=== PATIENT | female | born 1960 | race Caucasian/White ===

== ENCOUNTER → 2017-02-01 | Outpatient (CLI) | payer OTHER ==
[2017-02-01 13:17] LABS: BASO % 0.9 %; BASO ABS # 0.05 K/uL (0-0.2); COMPLETE YES; EOS % 1.3 %; HEMATOCRIT 41.6 % (37-47); IG% 0.2 %; LYMPH % 31.2 %; LYMPH ABS # 1.67 K/uL (1.2-3.4); MEAN CELL VOLUME 85.1 fL (80-100); MEAN CORPUSCULAR HEMOGLOBIN 30.3 pg (25-34); MEAN CORPUSCULAR HGB CONC 35.6 g/dl (32-36); MONO % 13.4 %; PLATELET COUNT 184 K/uL (130-400); RED BLOOD COUNT 4.89 M/uL (4.2-5.4); WHITE BLOOD COUNT 5.36 K/uL (4.8-10.8)
[2017-02-01 13:56] LABS: ALT/SGPT 28 U/L (12-78); AST/SGOT 18 U/L (15-37); BLOOD UREA NITROGEN 12 mg/dl (7-18); CARBON DIOXIDE 28 mmol/L (21-32); CHLORIDE 106 mmol/L (98-107); CHOLESTEROL 178 mg/dl (0-200); CREATININE 0.62 mg/dl (0.60-1.20); GLUCOSE 83 mg/dl (70-99); SODIUM 142 mmol/L (136-145); TRIGLYCERIDES 130 mg/dl (0-150); VERY LOW DENSITY LIPOPROT CALC 26 mg/dl
[2017-02-01 14:06] LABS: ALB/GLOB RATIO 1.1 (0.9-2); ALKALINE PHOSPHATASE 80 U/L (45-117); CHOLESTEROL/HDL RATIO 3.2; HDL CHOLESTEROL 55 mg/dl; LDL CHOLESTEROL CALCULATED 97 mg/dl
== END | disposition home or self-care (01) ==
LOC: C.LAB1850 12:03
PROVIDERS: ATTEND Internal Medicine
DX: I10 Essential (primary) hypertension (principal); R51 Headache

== ENCOUNTER → 2018-01-07 | Outpatient (CLI) | payer OTHER ==
[2018-01-07 17:28] LABS: BASO % 0.4 %; BASO ABS # 0.02 K/uL (0-0.2); EOS % 0.9 %; EOS ABS # 0.05 K/uL (0-0.5); HEMATOCRIT 40.2 % (37-47); HEMOGLOBIN 14.3 g/dL (12.0-16.0); IG# 0.01 K/uL (0.00-0.02); LYMPH % 29.7 %; LYMPH ABS # 1.64 K/uL (1.2-3.4); MEAN CELL VOLUME 86.3 fL (80-100); MEAN CORPUSCULAR HEMOGLOBIN 30.7 pg (25-34); MEAN CORPUSCULAR HGB CONC 35.6 g/dl (32-36); MEAN PLATELET VOLUME 9.2 fL (7.4-10.4); MONO % 7.4 %; MONO ABS # 0.41 K/uL (0.11-0.59); NEUT % 61.4 %; NEUT ABS # 3.39 K/uL (1.4-6.5); PLATELET COUNT 172 K/uL (130-400); RED CELL DISTRIBUTION WIDTH CV 12.8 % (11.5-14.5); RED CELL DISTRIBUTION WIDTH SD 39.9 fL (36.4-46.3); WHITE BLOOD COUNT 5.52 K/uL (4.8-10.8)
[2018-01-07 17:52] LABS: ALBUMIN 3.7 gm/dl (3.4-5.0); ALT/SGPT 38 U/L (12-78); AST/SGOT 21 U/L (15-37); BLOOD UREA NITROGEN 14 mg/dl (7-18); CALCIUM 8.5 mg/dl (8.5-10.1); CARBON DIOXIDE 26 mmol/L (21-32); CREATININE 0.71 mg/dl (0.60-1.20); GLUCOSE 120 mg/dl (70-99); POTASSIUM 3.6 mmol/L (3.5-5.1); SODIUM 139 mmol/L (136-145)
[2018-01-07 18:04] LABS: ALKALINE PHOSPHATASE 84 U/L (45-117); CHOLESTEROL 176 mg/dl (0-200); LDL CHOLESTEROL CALCULATED 78 mg/dl; TOTAL PROTEIN 7.4 gm/dl (6.4-8.2)
== END | disposition home or self-care (01) ==
LOC: C.LAB1850 16:18
PROVIDERS: ATTEND Physician Assistant
DX: R07.89 Other chest pain (principal)

== ENCOUNTER → 2018-01-21 | Outpatient (CLI) | payer OTHER ==
[~2018-01-21] MED LIST: GADAVIST IV PRN
--- NOTE | 2018-01-21 12:55 | DIAGNOSTIC IMAGING REPORT ---
MRI OF THE BRAIN COMBO CLINICAL HISTORY: Cerebral aneurysm. History of meningioma. COMPARISON STUDY: MRI of the brain dated 11/08/2009. MR angiogram of the brain dated 06/03/2010. TECHNIQUE: MRI of the brain was performed utilizing various T1 and T2-weighted sequences in the axial, sagittal, and coronal planes. Contrast-enhanced sequences were acquired following the administration of 9.5 cc of Gadavist. FINDINGS: Brain parenchyma: Postoperative change is seen deep to the right posterior parietal craniotomy site. There is unchanged high right parietal encephalomalacia, likely related to previous surgery. Minimal microangiopathic disease is noted. There is no hemorrhage or mass effect. There is no restricted diffusion to suggest acute ischemia. No new/recurrent enhancing mass lesion is identified on the postcontrast images. Maza-white matter differentiation is preserved. No extra-axial fluid collection is seen. The cerebellar tonsils are normal in configuration. Ventricles, sulci, and cisterns: Normal in configuration. Pituitary and sella: Unremarkable. Intracranial vasculature: Normal flow voids are maintained at the skull base. 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 Orbits: The bony orbits are grossly intact. 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 Sinuses and mastoids: Clear. Calvarium: There are postoperative changes from right frontoparietal craniotomy. No destructive calvarial lesion is seen. Cervical cord: Partially visualized cervical spinal cord is normal in morphology and signal intensity. IMPRESSION: 1. No acute intracranial abnormality. 2. Again seen are postoperative changes from right sided craniotomy and meningioma resection. There is no evidence of recurrent or residual enhancing mass lesion. 3. An aneurysm is again seen in the region of the left cavernous sinus related to the carotid artery. This is not well evaluated due to lack of MR angiographic technique. Electronically signed by: Jonah Crisostomo M.D. 01/21/2018 12:53 PM Dictated Date/Time: 01/21/2018 12:46 PM
== END | disposition home or self-care (01) ==
LOC: C.MRI 11:38
PROVIDERS: ATTEND Internal Medicine
DX: Z00.00 Encounter for general adult medical examination without abnormal findings (principal); I67.1 Cerebral aneurysm, nonruptured; D32.9 Benign neoplasm of meninges, unspecified; I72.9 Aneurysm of unspecified site; Z98.890 Other specified postprocedural states